=== PATIENT | female | born 1955 | race Caucasian/White ===

== ENCOUNTER → 2018-08-29 | Outpatient (CLI) | payer OTHER | LOC: EMCIMAGING 12:48 ==

== ENCOUNTER 2018-09-08 10:35 | Day surgery (SDC) | payer OTHER | END 2018-09-08 15:52 | disposition home or self-care (01) | LOC: FIMAGING 10:35 ==

== ENCOUNTER 2018-09-22 11:27 | Day surgery (SDC) | payer OTHER | END 2018-09-22 15:35 | disposition home or self-care (01) | LOC: FIMAGING 11:27 ==